=== PATIENT | male | born 1960 | race Caucasian/White ===

== ENCOUNTER 2017-08-04 22:14 | Emergency (ER) | payer MEDICARE, OTHER ==
[~2017-08-04] VITALS: Ht 165.1 cm; Wt 66.0 kg
[2017-08-04] MEDS ORDERED: SODIUM CHLORIDE 0.9% 1,000ML IVBOLUS ONE (23:00)
[2017-08-04 23:27] LABS: HEMATOCRIT 33.5 % (39.2-51.8); HEMOGLOBIN 10.7 g/dL (13.7-18.0); WHITE BLOOD COUNT 11.7 x10^3/uL (3.4-10)
[2017-08-04 23:38] LABS: BLOOD UREA NITROGEN 11 mg/dL (7-18)
[2017-08-04 23:43] LABS: IS PT STATUS REG ER OR PRE ER? YES
[2017-08-04] MEDS ORDERED: BISA5TAB5 PO (23:55)
[2017-08-04] MEDS ORDERED: FURO40TA6 PO (23:55)
[2017-08-04] MEDS ORDERED: MIRT30TA4 PO (23:55)
[2017-08-04] MEDS ORDERED: LANS30CA PO (23:55)
[2017-08-04] MEDS ORDERED: PREG300C PO (23:55)
[2017-08-04] MEDS ORDERED: SIME80TA15 PO (23:55)
[2017-08-04] MEDS ORDERED: [UNRECOGNIZED DRUG - CODE] PO (23:59)
[2017-08-04] MEDS ORDERED: METH10OR3 PO (23:59)
[2017-08-05] MEDS ORDERED: LEVOFLOXACIN/PMX 500MG/100ML 100 ML ONE (00:25)
[2017-08-05] MEDS ORDERED: LEVOFLOXACIN/PMX 500MG/100ML 100 ML IV SCH (00:30)
[2017-08-05 02:14] VITALS: BP 101/56
== END 2017-08-05 02:16 | disposition left against medical advice (07) ==
LOC: ED 08-05 01:26
DX: J15.9 Unspecified bacterial pneumonia (principal); Z87.891 Personal history of nicotine dependence; Z85.9 Personal history of malignant neoplasm, unspecified
CPT/HCPCS: 36415; 71010; 80048; 82040; 83605; 84145; 84484; 85025; 87040; 93005; 96361; 96365; 99285; J1956; J7030